=== PATIENT | female | born 1955 ===

== ENCOUNTER 2018-01-06 12:12 | Day surgery (SDC) | payer MEDICAID ==
[2018-01-06] MEDS ORDERED: Midazolam 2 MG/2 ML VIAL ONE (14:50)
[2018-01-06] MEDS ORDERED: Propofol 10 mg/ml Inj (20 ML) ONE (14:50)
[2018-01-06] MEDS ORDERED: Gentamicin 160 MG in Sodium Chloride 0.9% 100 ML IVPB ONE (14:52)
[2018-01-06] MEDS ORDERED: Ciprofloxacin 400mg/200ml D5W 400 MG/200 ML BAG IVPB ONE (14:59)
[2018-01-06] MEDS ORDERED: Lidocaine 2% Jelly (Uro-Jet) ONE (14:59)
[2018-01-06] MEDS ORDERED: Iohexol 240 (50 ml) ONE (14:59)
--- NOTE | 2018-01-06 15:33 | PCM.SURG1 ---
Surgeon's Initial Post Op Note - Surgeon's Notes Surgeon: Michelet Application Integration Architect: [place] Type of Anesthesia: General LMA Anesthesia Administered By: Staff Pre-Operative Diagnosis: Bladder mass Operative Findings: Solid mass R bladder well away from R ureteral orriffice Post-Operative Diagnosis: same Operation Performed: Turbt medium Specimen/Specimens Removed: tumor Estimated Blood Loss: EBL {In ML}: 0 Blood Products Given: N/A Drains Used: No Drains Post-Op Condition: Good Date of Surgery/Procedure: 01/06/18 Time of Surgery/Procedure: 15:33
[2018-01-06 16:11] VITALS: O2SAT 100
[2018-01-06 17:29] VITALS: BP 136/82; PULSE 72; RESP 18; TEMP 98
--- NOTE | 2018-01-14 08:25 | OP ---
PROCEDURE DATE: 01/06/2018 PREOPERATIVE DIAGNOSIS: Bladder mass. POSTOPERATIVE DIAGNOSIS: Bladder mass. PROCEDURE: TURBT medium. SURGEON: West Tafoya MD FINDINGS: A mass in the posterior wall of the bladder of unknown significance. DESCRIPTION OF PROCEDURE: The procedure as follows: The patient signed the detailed informed consent. After receiving full explanation of the risks and complications of the procedure, she was then draped and prepped in the usual manner in the lithotomy position. She received prophylactic antibiotics and was cystoscoped with a#[id number] Storz panendoscope. The urethra was normal. The bladder was entered atraumatically with a single mass on the prostate wall of the bladder. It was raised and pedunculated, but did not appear to be a normal transitional cell carcinoma. The mass was then resected, and the resected tissue was sent for pathologic analysis. The base was fulgurated extensively. There was no injury to the ureteral orifices or urethral sphincter. The patient tolerated this procedure well. It was elected not to leave the Walters catheter, and she was sent to recovery room in good condition. West Tafoya MD
== END 2018-01-06 18:27 | disposition home or self-care (01) ==
LOC: C.SDS 12:12
PROVIDERS: ATTEND Urology
DX: D49.4 Neoplasm of unspecified behavior of bladder (principal)
CPT/HCPCS: 52235; 88305; J0744; J1580; J7120